=== PATIENT | male | born 1955 | race Caucasian/White ===

== ENCOUNTER 2018-07-25 09:24 | Outpatient (REF) | payer MEDICARE, BC, SELFPAY ==
[2018-07-25 21:52] LABS: ALT 60 U/L (12-78); AST 26 U/L (15-37); Albumin 4.1 g/dL (3.4-5.0); Alkaline Phosphatase 84 U/L (46-116); Anion Gap 5.4 mmol/L (3-11); BUN 22 mg/dL (7-18); Bilirubin, Total 0.6 mg/dL (0.2-1.0); CO2 31.6 mmol/L (21.0-32.0); CREATININE 0.91 mg/dL (0.70-1.30); Chloride 103 mmol/L (98-107); Cholesterol 169 mg/dL (50-200); Glucose 114 mg/dL (70-100); HDL Cholesterol 40 mg/dL (40-60); Hemoglobin A1C 6.3 % (4.5-6.2); LDL CHOLESTEROL 113 mg/dL (<100); Potassium 4.5 mmol/L (3.5-5.1); Sodium 140 mmol/L (136-145); Total Protein 7.3 g/dL (6.4-8.2); Triglyceride 89 mg/dL (30-150)
== END 2018-07-25 09:44 ==
LOC: NCHCN 09:24
PROVIDERS: PCP Family Medicine; Visit Provider Family Medicine
DX: R73.09 Other abnormal glucose (principal); E78.5 Hyperlipidemia, unspecified; I10 Essential (primary) hypertension
CPT/HCPCS: 80053; 80061; 83721; 83036

== ENCOUNTER 2019-07-26 08:46 | Outpatient (REF) | payer MEDICARE, BC, SELFPAY ==
[2019-07-26 21:31] LABS: ALT 31 U/L (16-63); AST 17 U/L (15-37); Albumin 3.8 g/dL (3.4-5.0); Alkaline Phosphatase 68 U/L (46-116); Anion Gap 6.5 mmol/L (3-11); BUN 21 mg/dL (7-18); Bilirubin, Total 0.6 mg/dL (0.2-1.0); CO2 30.5 mmol/L (21.0-32.0); CREATININE 0.88 mg/dL (0.70-1.30); Calcium 8.5 mg/dL (8.5-10.1); Calculated LDL 87 mg/dL; Chloride 107 mmol/L (98-107); Cholesterol 141 mg/dL (<200); Glucose 103 mg/dL (74-106); HDL Cholesterol 41 mg/dL (40-60); Potassium 4.4 mmol/L (3.5-5.1); Sodium 144 mmol/L (136-145); Total Protein 6.6 g/dL (6.4-8.2); Triglyceride 66 mg/dL (<150)
[2019-07-26 21:46] LABS: Uric Acid 3.5 mg/dL (3.5-7.2)
== END 2019-07-26 09:06 ==
LOC: NCHCN 08:46
PROVIDERS: PCP Family Medicine; Visit Provider Family Medicine
DX: M10.9 Gout, unspecified (principal); R73.09 Other abnormal glucose; E78.5 Hyperlipidemia, unspecified; I10 Essential (primary) hypertension; I48.91 Unspecified atrial fibrillation
CPT/HCPCS: 80053; 80061; 83036; 84550

== ENCOUNTER 2020-07-24 12:41 | Outpatient (REF) | payer MEDICARE, BC, SELFPAY ==
[2020-07-24 22:41] LABS: Uric Acid 3.8 mg/dL (3.5-7.2)
[2020-07-24 22:50] LABS: Hemoglobin A1C 5.9 % (<5.7)
== END 2020-07-24 13:01 ==
LOC: NCHCN 12:41
PROVIDERS: PCP Family Medicine; Visit Provider Family Medicine
DX: R73.03 Prediabetes (principal); M10.9 Gout, unspecified
CPT/HCPCS: 83036; 84550

== ENCOUNTER 2020-07-30 21:28 | Outpatient (REF) | payer MEDICARE, BC, SELFPAY ==
[2020-07-30 22:22] LABS: ALT 35 U/L (16-63); AST 19 U/L (15-37); Alkaline Phosphatase 87 U/L (46-116); Anion Gap 7.1 mmol/L (3-11); BUN 21 mg/dL (7-18); Bilirubin, Total 0.5 mg/dL (0.2-1.0); CO2 27.9 mmol/L (21.0-32.0); CREATININE 0.95 mg/dL (0.70-1.30); Calcium 9.5 mg/dL (8.5-10.1); Chloride 106 mmol/L (98-107); Glucose 103 mg/dL (74-106); Potassium 4.3 mmol/L (3.5-5.1); Sodium 141 mmol/L (136-145)
[2020-07-30 22:35] LABS: Calculated LDL 90 mg/dL (<100); Cholesterol 154 mg/dL (<200); HDL Cholesterol 41 mg/dL (40-60); Triglyceride 118 mg/dL (<150)
== END 2020-07-30 21:48 ==
LOC: NCHCN 21:28
PROVIDERS: PCP Family Medicine; Visit Provider Family Medicine
DX: E78.5 Hyperlipidemia, unspecified (principal); I10 Essential (primary) hypertension; I48.91 Unspecified atrial fibrillation; E66.9 Obesity, unspecified; Z12.5 Encounter for screening for malignant neoplasm of prostate; Z87.448 Personal history of other diseases of urinary system
CPT/HCPCS: 80053; 80061; 84153

== ENCOUNTER 2021-05-24 10:25 | Outpatient (REF) | payer MEDICARE, BC, SELFPAY ==
[2021-05-24 15:20] LABS: Anion Gap 7.6 mmol/L (3-11); BUN 22 mg/dL (7-18); CO2 28.4 mmol/L (21.0-32.0); CREATININE 1.1 mg/dL (0.70-1.30); Chloride 107 mmol/L (98-107); Glucose 96 mg/dL (74-106); Potassium 4.5 mmol/L (3.5-5.1); Sodium 143 mmol/L (136-145)
== END 2021-05-24 10:26 | disposition home or self-care (01) ==
LOC: NCHCN 10:25
PROVIDERS: PCP Family Medicine; Visit Provider Nurse Practitioner Family
DX: I10 Essential (primary) hypertension (principal)
CPT/HCPCS: 80048

== ENCOUNTER 2021-07-28 14:52 | Outpatient (REF) | payer MEDICARE, BC, SELFPAY ==
[2021-07-28 15:20] LABS: ALT 34 U/L (16-63); AST 18 U/L (15-37); Albumin 4.1 g/dL (3.4-5.0); Alkaline Phosphatase 76 U/L (46-116); Anion Gap 6.4 mmol/L (3-11); BUN 23 mg/dL (7-18); Bilirubin, Total 0.6 mg/dL (0.2-1.0); CO2 30.6 mmol/L (21.0-32.0); Calcium 8.9 mg/dL (8.5-10.1); Calculated LDL 89 mg/dL (<100); Chloride 105 mmol/L (98-107); Cholesterol 149 mg/dL (<200); Glucose 112 mg/dL (74-106); HDL Cholesterol 41 mg/dL (40-60); Potassium 4.3 mmol/L (3.5-5.1); Sodium 142 mmol/L (136-145); Triglyceride 95 mg/dL (<150)
[2021-07-28 15:32] LABS: Uric Acid 3.8 mg/dL (3.5-7.2)
[2021-07-28 16:18] LABS: Hemoglobin A1C 5.9 % (<5.7)
[2021-07-28 22:41] LABS: PSA, Screening 1.9 ng/mL (0.0-4.5)
== END 2021-07-28 14:53 | disposition home or self-care (01) ==
LOC: NCHCN 14:52
PROVIDERS: PCP Family Medicine; Visit Provider Family Medicine
DX: E78.5 Hyperlipidemia, unspecified (principal); R73.03 Prediabetes; I10 Essential (primary) hypertension; M10.9 Gout, unspecified; Z12.5 Encounter for screening for malignant neoplasm of prostate; N40.0 Benign prostatic hyperplasia without lower urinary tract symptoms
CPT/HCPCS: 80053; 80061; 84153; 83036; 84550

== ENCOUNTER 2022-04-12 19:51 | Outpatient (REF) | payer MEDICARE, SELFPAY ==
[2022-04-12 14:50] LABS: HCT 40.4 % (40.0-50.0); HGB 13.8 g/dL (13.5-17.5); MCH 30.7 pg (27.0-33.0); MCHC 34.2 % (32.0-36.0); MCV 90 fL (80-95); MPV 10.4 fL (8.0-11.0); Platelet Count 203 10^3/uL (130-400); RBC 4.49 10^6/uL (4.36-5.78); RDW-SD 42.5 fL
[2022-04-12 14:56] LABS: INR 1.1 (0.9-1.1); Prothrombin Time 11.4 sec (9.3-11.0)
[2022-04-12 15:04] LABS: Anion Gap 7.7 mmol/L (3-11); BUN 28 mg/dL (7-18); CO2 27.3 mmol/L (21.0-32.0); CREATININE 1.1 mg/dL (0.70-1.30); Chloride 107 mmol/L (98-107); Estimated GFR 72.67 (mL/min/1.73m2); Glucose 101 mg/dL (74-106); Potassium 4.3 mmol/L (3.5-5.1); Sodium 142 mmol/L (136-145)
[2022-04-12 15:28] LABS: Hemoglobin A1C 6.2 % (<5.7)
== END 2022-04-12 19:52 | disposition home or self-care (01) ==
LOC: NCHCN 19:51
PROVIDERS: PCP Family Medicine; Visit Provider Nurse Practitioner
DX: R73.03 Prediabetes (principal); M51.36 Other intervertebral disc degeneration, lumbar region; I48.91 Unspecified atrial fibrillation
CPT/HCPCS: 80048; 85027; 83036; 85610

== ENCOUNTER 2022-09-27 18:06 | Outpatient (REF) | payer MEDICARE, SELFPAY ==
[2022-09-27 21:25] LABS: HCT 43.6 % (40.0-50.0); HGB 13.6 g/dL (13.5-17.5); MCH 26.8 pg (27.0-33.0); MCHC 31.2 % (32.0-36.0); MCV 86 fL (80-95); MPV 10.1 fL (8.0-11.0); Platelet Count 244 10^3/uL (130-400); RBC 5.08 10^6/uL (4.36-5.78); RDW 14.9 % (11.8-14.1); RDW-SD 47.8 fL; WBC 6.42 10^3/uL (4.4-10.8)
[2022-09-27 21:34] LABS: ALT 20 U/L (16-63); AST 19 U/L (15-37); Albumin 3.8 g/dL (3.4-5.0); Alkaline Phosphatase 114 U/L (46-116); Anion Gap 8.1 mmol/L (3-11); BUN 20 mg/dL (7-18); Bilirubin, Total 0.4 mg/dL (0.2-1.0); CO2 27.9 mmol/L (21.0-32.0); Calcium 9.1 mg/dL (8.5-10.1); Chloride 102 mmol/L (98-107); Estimated GFR 81.47 (mL/min/1.73m2); Glucose 115 mg/dL (74-106); Potassium 4.4 mmol/L (3.5-5.1); Sodium 138 mmol/L (136-145); Total Protein 6.9 g/dL (6.4-8.2); Uric Acid 3.5 mg/dL (3.5-7.2)
[2022-09-27 21:39] LABS: Hemoglobin A1C 6.1 % (<5.7)
[2022-09-27 22:18] LABS: Calculated LDL 67 mg/dL (<100); Cholesterol 141 mg/dL (<200); HDL Cholesterol 41 mg/dL (40-60); Triglyceride 168 mg/dL (<150)
== END 2022-09-27 18:07 | disposition home or self-care (01) ==
LOC: NCHCN 18:06
PROVIDERS: PCP Family Medicine; Visit Provider Family Medicine
DX: E78.5 Hyperlipidemia, unspecified (principal); R73.03 Prediabetes; I10 Essential (primary) hypertension; I48.91 Unspecified atrial fibrillation
CPT/HCPCS: 80053; 80061; 84153; 85027; 83036; 84550

== ENCOUNTER 2023-04-06 13:00 | Outpatient (REF) | payer MEDICARE, SELFPAY ==
[2023-04-06 17:24] LABS: Hemoglobin A1C 6.1 % (<5.7)
[2023-04-06 17:37] LABS: ALT 26 U/L (16-63); AST 22 U/L (15-37); Alkaline Phosphatase 106 U/L (46-116); Anion Gap 9.1 mmol/L (3-11); BUN 23 mg/dL (7-18); Bilirubin, Total 0.6 mg/dL (0.2-1.0); CO2 26.9 mmol/L (21.0-32.0); Calcium 9.4 mg/dL (8.5-10.1); Chloride 103 mmol/L (98-107); Estimated GFR 80.97 (mL/min/1.73m2); Glucose 106 mg/dL (74-106); Potassium 4.1 mmol/L (3.5-5.1); Sodium 139 mmol/L (136-145); TSH (W/Ref FT4) 1.83 uIU/mL (0.36-3.74); Total Protein 7.4 g/dL (6.4-8.2); Uric Acid 6.4 mg/dL (3.5-7.2)
[2023-04-06 18:16] LABS: Vitamin D 25 Total 70.2 ng/mL (30-100)
== END 2023-04-06 13:01 | disposition home or self-care (01) ==
LOC: NCHCN 13:00
PROVIDERS: PCP Family Medicine; Visit Provider Family Medicine
DX: I10 Essential (primary) hypertension (principal); M10.9 Gout, unspecified; M25.572 Pain in left ankle and joints of left foot; R73.03 Prediabetes; E66.9 Obesity, unspecified; R42 Dizziness and giddiness; M85.88 Other specified disorders of bone density and structure, other site
CPT/HCPCS: 80053; 82306; 83036; 84443; 84550

== ENCOUNTER 2023-10-27 09:53 | Outpatient (REF) | payer MEDICARE, SELFPAY ==
[2023-10-27 14:45] LABS: ALT 20 U/L (16-63); AST 18 U/L (15-37); Albumin 3.9 g/dL (3.4-5.0); Alkaline Phosphatase 103 U/L (46-116); Anion Gap 6.4 mmol/L (3-11); BUN 20 mg/dL (7-18); Bilirubin, Total 0.6 mg/dL (0.2-1.0); CO2 31.6 mmol/L (21.0-32.0); CREATININE 1.1 mg/dL (0.70-1.30); Calcium 9.3 mg/dL (8.5-10.1); Chloride 105 mmol/L (98-107); Estimated GFR 72.22 (mL/min/1.73m2); Glucose 102 mg/dL (74-106); Potassium 4.4 mmol/L (3.5-5.1); Sodium 143 mmol/L (136-145); Total Protein 7.4 g/dL (6.4-8.2); Uric Acid 6.9 mg/dL (3.5-7.2)
[2023-10-27 14:56] LABS: Hemoglobin A1C 6.3 % (<5.7)
[2023-10-27 14:58] LABS: Calculated LDL 83 mg/dL (<100); Cholesterol 157 mg/dL (<200); HDL Cholesterol 41 mg/dL (40-60); Triglyceride 166 mg/dL (<150)
== END 2023-10-27 09:54 | disposition home or self-care (01) ==
LOC: NCHCN 09:53
PROVIDERS: PCP Family Medicine; Referring Provider Family Medicine; Visit Provider Family Medicine
DX: E78.5 Hyperlipidemia, unspecified (principal); R73.03 Prediabetes; M10.9 Gout, unspecified; I10 Essential (primary) hypertension
CPT/HCPCS: 80053; 80061; 83036; 84550

== ENCOUNTER 2024-02-20 11:47 | Outpatient (REF) | payer MEDICARE, SELFPAY ==
[2024-02-20 14:49] LABS: HCT 45.8 % (40.0-50.0); HGB 15.1 g/dL (13.5-17.5); MCH 29.4 pg (27.0-33.0); MCV 89 fL (80-95); MPV 10.4 fL (8.0-11.0); Platelet Count 190 10^3/uL (130-400); RBC 5.14 10^6/uL (4.36-5.78); RDW-SD 39.8 fL; WBC 6.11 10^3/uL (4.4-10.8)
[2024-02-20 15:04] LABS: Anion Gap 6.4 mmol/L (3-11); BUN 14 mg/dL (7-18); CO2 30.6 mmol/L (21.0-32.0); Calcium 9.1 mg/dL (8.5-10.1); Chloride 105 mmol/L (98-107); Estimated GFR 80.47 (mL/min/1.73m2); Glucose 94 mg/dL (74-106); Potassium 4.5 mmol/L (3.5-5.1); Sodium 142 mmol/L (136-145)
== END 2024-02-20 11:48 | disposition home or self-care (01) ==
LOC: NCHCN 11:47
PROVIDERS: PCP Family Medicine; Visit Provider Family Medicine
DX: Z01.818 Encounter for other preprocedural examination (principal)
CPT/HCPCS: 80048; 85027

== ENCOUNTER 2025-04-10 17:10 | Outpatient (REF) | payer MEDICARE, SELFPAY ==
[2025-04-10 20:51] LABS: Hemoglobin A1C 6.6 % (<5.7)
[2025-04-10 20:53] LABS: Anion Gap 9.1 mmol/L (3-11); BUN 25 mg/dL (7-18); CO2 25.9 mmol/L (21.0-32.0); Calcium 9.6 mg/dL (8.5-10.1); Chloride 102 mmol/L (98-107); Estimated GFR 45.50 (mL/min/1.73m2); Glucose 114 mg/dL (74-106); Potassium 4.8 mmol/L (3.5-5.1); Sodium 137 mmol/L (136-145)
== END 2025-04-10 17:11 | disposition home or self-care (01) ==
LOC: NCHCN 17:10
PROVIDERS: PCP Family Medicine; Visit Provider Family Medicine
DX: R73.03 Prediabetes (principal); I10 Essential (primary) hypertension
CPT/HCPCS: 80048; 83036

== ENCOUNTER 2025-04-18 13:12 | Outpatient (REF) | payer MEDICARE, SELFPAY ==
[2025-04-18 14:40] LABS: Anion Gap 8.7 mmol/L (3-11); BUN 25 mg/dL (7-18); CO2 26.3 mmol/L (21.0-32.0); Calcium 9.1 mg/dL (8.5-10.1); Chloride 107 mmol/L (98-107); Estimated GFR 71.32 (mL/min/1.73m2); Glucose 118 mg/dL (74-106); Potassium 3.9 mmol/L (3.5-5.1); Sodium 142 mmol/L (136-145)
== END 2025-04-18 13:13 | disposition home or self-care (01) ==
LOC: NCHCN 13:12
PROVIDERS: PCP Family Medicine; Visit Provider Family Medicine
DX: I50.32 Chronic diastolic (congestive) heart failure (principal)
CPT/HCPCS: 80048